=== PATIENT | male | born 1975 | race Caucasian/White ===

== ENCOUNTER → 2017-01-20 | Outpatient (CLI) | payer OTHER ==
[~2017-01-20] MED LIST: FLEXERIL10 MG PO; POLYTRIM EYE DR10 ML OS; PREDNISONE PO; PREDNISONE10 MG/DOSE PO; VISTARIL PO; VITAMIN B12-FO1 EACH PO; WELLBUTRIN PO; ZOLOFT
--- NOTE | ~2017-01-20 | US24 ---
[facility] A Service of [facility] RADIOLOGY TEXT RESULTS PATIENT: JEREMY RAMIREZ JR LOCATION: [facility] : 75 UNIT #: [id number] AGE: [address]: DIANDRA DRUMMOND MD SEX: M ORDER DR: [id number] [facility] [address] [place], [place] [address] [id number] O MR#: [id number] Acc #: [id number] NAME: JEREMY RAMIREZ JR : 1975 SEX: M STUDY DATE/TIME: 01/20/2017 11:45 UNIT: [facility] ROOM: STUDY DESCRIPTION: US Breast Unilateral Attending Physician: Sydnie Drummond M.D. Ordering Physician: Sydnie Drummond M.D. Primary Care Physician: Sydnie Drummond M.D. MEDICAL IMAGING REPORT This report is preliminary unless electronic signature is present EXAM Targeted ultrasound left breast, 01/20/2017. FINDINGS Please see the report of the left diagnostic mammogram same date. Patients over the age of 40 are entered into a reminder system with target due date for the next mammogram. A result letter will also be sent to the patient. BIRADS: 2 Benign finding. Dictated by... Marc Ballesteros M.D. THIS IS AN ELECTRONICALLY VERIFIED REPORT Marc Ballesteros M.D. at 01/20/2017 5:20 PM PASHA/parminder TD: 01/20/2017 16:28 JOB #: [id number] MEDICAL IMAGING REPORT COPY
--- NOTE | ~2017-01-20 | MY7 ---
[facility] A Service of [facility] RADIOLOGY TEXT RESULTS PATIENT: JEREMY RAMIREZ JR LOCATION: [facility] : 75 UNIT #: [id number] AGE: [address]: DIANDRA DRUMMOND MD SEX: M ORDER DR: [id number] [facility] [address] [place], [place] [address] [id number] O MR#: [id number] Acc #: [id number] NAME: JEREMY RAMIREZ JR : 1975 SEX: M STUDY DATE/TIME: 01/20/2017 11:30 UNIT: [facility] ROOM: STUDY DESCRIPTION: MY Mammogram Dx Dig Lt Attending Physician: Sydnie Drummond M.D. Ordering Physician: Sydnie Drummond M.D. Primary Care Physician: Sydnie Drummond M.D. MEDICAL IMAGING REPORT This report is preliminary unless electronic signature is present EXAM Bilateral digital diagnostic mammogram and targeted left breast ultrasound, 01/20/2017. INDICATION 41-year-old male complaining of a palpable lump in the upper outer aspect left breast for the past 6-7 years. The patient indicated the area has slightly increased in prominence over that long-time frame. No additional problems. TECHNIQUE CC and MLO views of the left breast and CC and MLO views of the left breast and an MLO view of the right breast were obtained reviewed with an FDA-approved CAD device. COMPARISON STUDIES There are no comparison studies. FINDINGS The marker overlies the area of palpable concern in the left breast. In the upper outer hemisphere left breast deep to the marker, there are several benign-appearing intramammary nodes. The largest of these measures up to about a centimeter. There is also the suggestion of some faint breast tissue in the upper outer left breast and a subtle margin to the tissue is seen inferiorly, best demonstrated on the MLO projection. There is no suspicious mass, skin thickening, or architectural distortion otherwise present. No suspicious microcalcifications. Perhaps minimal incidental unilateral gynecomastia on the left. The right breast is negative. Targeted ultrasound of the area of palpable concern on the left was thereafter performed. TARGETED ULTRASOUND OF THE LEFT BREAST: Limited physical exam (with patient consent) was performed. Physical exam demonstrates an asymmetric STS. [facility] A Service of [facility] RADIOLOGY TEXT RESULTS PATIENT: JEREMY RAMIREZ JR LOCATION: [facility] : 75 UNIT #: [id number] AGE: [address]: DIANDRA DRUMMOND MD SEX: M ORDER DR: area of soft tissue prominence in the upper outer left breast approaching the axilla. Findings correspond to the mammographic abnormality. Ultrasound of this area demonstrates an oval-shaped area of mixed echogenicity soft tissue at about 2 o'clock 8 cm from the nipple. This measures on the order of about 3.4 x 1.6 cm. There is the suggestion of a faint peripheral capsule best appreciated real time. The area is bordered by multiple normal appearing lymph nodes with fatty moy, the largest of which measures up to about 7 x 5 mm. There is no suspicious internal color-flow, abnormal shadowing, or other suspicious ultrasound characteristic. Imaging features are nonspecific in a male patient but differential considerations would lead with a breast hamartoma or prominent island of breast tissue in a male patient. Given the provided clinical history and imaging findings, this is favored to represent a benign finding, likely a hamartoma. Clinical considerations should determine additional imaging and management at this point. The patient was counseled that if this area was problematic with daily activity or if otherwise desired by the patient, definitive management would require surgical resection. The patient was also counseled that if this area became painful or demonstrated enlargement further, consideration of prophylactic surgical removal would be recommended, as well. The patient has voiced understanding and agreement. IMPRESSION In the area of palpable concern on the left, the mammogram and ultrasound demonstrate an oval shaped area of breast tissue bordered by normal appearing intramammary nodes. Imaging features are felt to most likely represent a benign etiology, likely a hamartoma or prominent oval-shaped island of breast tissue in this male patient. Clinical history also supports a benign etiology and diagnosis and clinical considerations should determine additional imaging at this point. The patient was counseled that if the area became more painful or larger over time, the patient should return for additional evaluation with imaging at that point and at that point surgical resection would also be recommended for more definitive characterization or assessment. If the patient indicates this is interfering with daily activities, then surgical resection is also an option, despite the overall benign features. See discussion above. Patients over the age of 40 are entered into a reminder system with target due date for the next mammogram. A result letter will also be sent to the patient. BIRADS: 2 Benign finding. Dictated by... Marc Ballesteros M.D. [facility] A Service of [facility] RADIOLOGY TEXT RESULTS PATIENT: JEREMY RAMIREZ JR LOCATION: [facility] : 75 UNIT #: [id number] AGE: [address]: DIANDRA DRUMMOND MD SEX: M ORDER DR: THIS IS AN ELECTRONICALLY VERIFIED REPORT Marc Ballesteros M.D. at 01/20/2017 5:20 PM PASHA/parminder TD: 01/20/2017 15:51 JOB #: [id number] MEDICAL IMAGING REPORT COPY
== END | disposition home or self-care (01) ==
LOC: CMAM 11:13
DX: N63 Unspecified lump in breast (principal)
CPT/HCPCS: 76641; G0206

== ENCOUNTER 2017-02-28 00:42 | Emergency (ER) | payer OTHER | END 2017-02-28 00:57 | disposition home or self-care (01) | LOC: SED 00:42 | DX: J01.90 Acute sinusitis, unspecified (principal); F17.200 Nicotine dependence, unspecified, uncomplicated; F41.9 Anxiety disorder, unspecified | CPT/HCPCS: 87651; 99282 ==

== ENCOUNTER → 2017-03-09 13:07 | Emergency (ER) | payer OTHER | END | disposition home or self-care (01) | LOC: SED 13:07 | DX: J01.90 Acute sinusitis, unspecified (principal); E78.5 Hyperlipidemia, unspecified; F17.210 Nicotine dependence, cigarettes, uncomplicated; Z88.8 Allergy status to other drugs, medicaments and biological substances | CPT/HCPCS: 99282 ==

== ENCOUNTER 2017-05-07 19:34 | Emergency (ER) | payer OTHER | END 2017-05-07 20:36 | disposition home or self-care (01) | LOC: SED 19:34 | DX: J02.9 Acute pharyngitis, unspecified (principal); R50.9 Fever, unspecified; F17.210 Nicotine dependence, cigarettes, uncomplicated; Z88.7 Allergy status to serum and vaccine | CPT/HCPCS: 87880; 96372; 99283; J0561 ==